=== PATIENT | male | born 1955 | race Caucasian/White ===

== ENCOUNTER 2021-02-17 15:49 | Observation (INO) | payer MEDICARE, SELFPAY ==
[2021-02-17] VITALS (14 sets, daily range): BP systolic 121–167; BP diastolic 67–95; PULSE 68–82; RESP 16–22; TEMP 36.4–37.9; O2SAT 92–97; BMI 30.7
--- NOTE | 2021-02-17 15:59 | PM.HP ---
Providers/Chief Complaint Admitting Physician: Junior Bourne MD Chief Complaint: APPENDIX History of Present Illness Mr. Harley Leone is a 65 year old male otherwise healthy presented to the emergency department of [facility] with worsening right-sided abdominal pain that started last Thursday while he was walking his 200 pounds dog, the pain has been waxing and waning over the weekend but today got worse so he decided to go to the ER to seek medical attention. She reports no history of nausea vomiting fevers or chills or any other constitutional symptoms. Never had this pain before and never had a colonoscopy when I asked him. Further work-up in the ER showed WBC count of 11.1, hemoglobin 15.5, platelets of 146, creatinine 0.[address] scan of the abdomen and pelvis was performed with IV contrast that showed findings consistent with appendicitis in addition to right inguinal hernia containing a short segment of non distended or thickened small bowel and descending and sigmoid colon diverticulosis without evidence of diverticulitis. I received a phone call from the ER [facility] and I accepted the patient as direct admission on my service for laparoscopic appendectomy possible open. Patient was transferred to [facility] via ambulance. Maintained to be having stable vital signs. Patient received dose of Zosyn at the emergency department prior to arrival to the hospital at [facility] Review of Systems General: Reports: 10 or more systems reviewed and unremarkable except in HPI and below Medications/Allergies Allergies Allergy/AdvReac Type Severity Reaction Status Date / Time No Known Allergies Allergy Verified 02/17/21 16:02 PFSH Acute PFSH: Medical History Right groin hernia Physical Exam Const: COMMON NORMALS: no acute distress and patient oriented x3 GENERAL APPEARANCE: cooperative ORIENTATION/CONSCIOUSNESS: Yes awake, Yes oriented to person, Yes oriented to place and Yes oriented to time HENMT: COMMON NORMALS: normocephalic HEAD & SCALP: normocephalic Eye: COMMON NORMALS: Equal, round and reactive pupils present and no scleral icterus PUPIL: Yes Equal, round and reactive pupils present Lymph: LYMPHATIC: no lymphadenopathy noted Chest: COMMONS NORMALS: normal inspection of the chest Resp: COMMON NORMALS: normal respiratory effort and clear to auscultation bilaterally AUSCULTATION: clear to auscultation bilaterally Cardio: COMMON NORMALS: S1 normal heart sound present and S2 normal heart sound present; negative for No murmurs present (Cardio) HEART SOUNDS: S1 normal heart sound present and S2 normal heart sound present GI: COMMON NORMALS: Soft to palpation; negative for No hepatosplenomegaly present INSPECTION: Yes normal to inspection PALPATION: Yes Soft to palpation, No Firmness to palpation present (GI), Yes Tenderness to palpation present (GI) Details: RLQ (Localized tenderness and guarding at McBurney's point consistent with acute appendicitis), No Guarding due to palpation present (GI), No Rigid due to palpation, No No hepatosplenomegaly present and Yes Hernia present other (Reducible right groin hernia) Neuro: COMMON NORMALS: patient oriented x3 SENSORIUM/ORIENTATION: Yes oriented to person, Yes oriented to place and Yes oriented to time Psych: COMMON NORMALS: mental status grossly normal Skin: COMMON NORMALS: no rashes or lesions noted GENERAL SKIN EXAM: no rashes or lesions noted A&P Assessment and plan (1) Acute appendicitis: After thorough history physical examination and reviewing the chart, I counseled the patient for laparoscopic appendectomy possible open. Indications, risks, benefits and alternatives were all discussed with the patient and did agree to proceed. Rationale was carefully and clearly discussed with the patient.Appropriate informed consent have been reviewed and signed Status: Acute Attestations Medical Necessity Statement*: Observation status for perioperative care Time Spent in Patient Care: (>than 50% of time spent in counselling and/or direct pt care on unit). Coding Level of Care Code Acute Court Transcriber for g Fwd Exam Comprehensive Diagnoses Acute appendicitis K35.80
--- NOTE | 2021-02-17 16:03 | ANES.PREANE2 ---
Pre-Anesthetic Assessment Pre-Anesthetic Assessment: Preop Diagnosis: acute appendicitis Proposed Procedure: Operation Date: 02/17/21 16:50 Proposed Procedures p Laparoscopic Appendectomy(Not Applicable) - Junior Bourne MD Was Beta Imelda taken within 24 hours: N/A Was Clonidine taken within 24 hours: N/A Social: Social History: No alcohol and No tobacco Exam: Pre-Anes Outpt Exam: alert, oriented x 3, clear to auscultation bilaterally and regular rate & rhythm Airway: Submandibular: WNL Cervical ROM: WNL MP: 2 Dentition: Chipped Pulmonary: Pulmonary: None reported CV/HEM: CV/HEM: None reported : : None reported Hepatic: Hepatic: None reported GI: GI: None reported Metabolic: Metabolic: None reported Musc/skel: Musc/skel: None reported Neuropsych: Neuropsych: None reported Anesthetic Plan: ASA status: 1E Anesthesia: General PFSH Anesthesia PFSH: Medical History Right groin hernia Data Anesthesia Cardiac Studies: No Data to Display
[2021-02-17] MEDS: sodium chloride 0.9% 1,000 ML 30 ML IV (16:05)
[2021-02-17] MEDS: acetaminophen 1,000 MG/100 ML PIGGYBACK 400 MG IV (16:12)
--- NOTE | 2021-02-17 16:46 | SUR.PHASEI ---
1552 PT RECIEVED FROM AMBULANCE CREW TO OPS 10 PT AWAKE ALERT WALKED TO BED PT HAS AND 20 GAUGE IV TO RT AC PATENT . PT PLACED IN GOWN PER SELF DR KRUEGER AND DR GREEN AT BEDSIDE AND HEART AND BREATH SOUNDS ASSESSED.
[2021-02-17] MEDS: lidocaine 2% INJ 20 mL INJECTION (17:35)
--- NOTE | 2021-02-17 17:38 | SUR.PHASEI ---
1730 UPDATED THAT SURGERY IS GOING WELL AND WILL FINISH IN APPROX 45 MINUTES, NO QUESTIONS VOICED.
--- NOTE | 2021-02-17 17:54 | PM.OP ---
Operative Report Date of procedure: February 17, 2021 Pre-op Diagnosis: Acute appendicitis Post-op diagnosis: other Post-op Diagnosis: Perforated appendicitis Pelvic peritonitis Procedure Done: 1-Laparoscopic appendectomy and partial cecectomy 5-Hpwdx-[id number] drain placement Specimens removed/disposition: Appendix and partial cecectomy Surgeon: Junior Bourne Deputy Harbormaster: Surgical nahum Perkins Circulating nurse Kasie Anesthesia: General (research food technologist Jennifer) Estimated blood loss (mL): 15 IV fluids (mL): 2,000 Condition: stable Disposition: observation Brief History: Acute appendicitis Procedure: Patient after being identified in the holding area and asked to void urine, and informed consent per chart ,patient was then taken back to the OR placed in supine position got intubated by anesthesia left arm was tucked tucked ,Timeout was done verifying the patient's name/date of /planned procedure and destination after the procedure, all were in agreement., preoperative antibiotics administered per protocol. prep and drape of the abdomen was done under the usual sterile technique. Started by longitudinal skin incision supraumbilical using a [place] trocar technique safe entry to the abdominal cavity was achieved verified by using 10 mm zero degree laparoscopy, switched to a 30? scope under direct visualization a suprapubic 5 mm trocar was inserted followed by another 5 mm trocar inserted in the left lower quadrant. I was able to position the patient in an T Villareal and left side down, noticed pelvic peritonitis., Using LigaSure 5 mm device under direct visualization for dissection and control of the mesoappendix,dissection of the prececal acutely inflamed appendix with perforation there was some adhesions towards the lateral pelvic wall that was taken down by sharp and blunt dissection, as the cecum was partially showing intense inflammatory process. Extensive inflammation involving part of the cecum and perforation was noticed towards the distal two third of the appendix with lots of intense inflammatory process towards the right lateral pelvic wall. Inter small bowel loops pus and fibrinous exudates was evident that was cleaned and irrigated. Attention was deviated to the healthy base of the appendix where I had to switch the camera to 5 mm 30? scope got introduced through the left lower quadrant and through the [place] trocar under direct visualization a GI stapler 45 mm blue load was applied at the healthy part of the cecum/base of the appendix,the appendix with partial cecectomy was then retrieved in an Endo Catch bag, final survey was done of the abdomen and pelvis , copious and thorough irrigation with warm saline, and suction was obtained, were purulent fluid like in the pelvis due to reaction from the inflamed perforated appendix. Multiple 5 mm clips were applied onto the staple line as well as the appendectomy staple line, one of the appendices epiploicae of the rectosigmoid did have some oozing and a clip application was applied as well. Final look laparoscopy was done showing no other abnormalities or injuries, Copious and thorough irrigation was used using 5 L of warm saline was then established, and I elected to place a 15 Bulgarian round Bernardino drain towards the pelvis under direct visualization.That was later stitched to the abdominal wall using 2-0 nylon. All trocars were taken out under direct visualization after the supraumblical trocar site was closed by #1 PDS sutures under direct vision using fascial closure device ,followed by skin closure using skin stacey of all trocar site incisions. infiltration of local lidocaine 2% was done to all incision sites.Dry dressing was applied. Count was completed at the end of the procedure for [place] , sponges and instruments Patient tolerated the procedure well and was transferred to the recovery area after extubation. I was present for the whole entire procedure
--- NOTE | 2021-02-17 18:14 | ANE.PACU2 ---
Inpatient post-anesthesia follow up: Airway intact: Yes Vital signs: Temperature 100.3 F Pulse Rate 82 Respiratory Rate 18 Blood Pressure 167/95 Pulse Oximetry 97 Oxygen Delivery Me thod Room Air Oxygen Flow Rate Fraction of Inspir ed Oxygen Hydration adequate: Yes Nausea and vomiting: No Pain level: 2 Mental status: Baseline
--- NOTE | 2021-02-17 18:34 | SUR.PHASEI ---
1804 PT TO OPS BAY 10 SLEEPING WITH ORAL AIRWAY IN PLACE GOOD RESP EFFORT ABD SOFT ROUND, BANDAIDS X 2 DRAIN SPONGE TO 3RD SITES WITH MICHAEL DRAIN WITH LARGE AMT OF LT PINK FLUID EMPTIED MULTIPLE TIMES, 1825 PT AWAKES AND COUGHS ORAL AIRWAY OUT PT QUICKLY BACK TO SLEEP DOES NOT VERBALIZED , DOES OPEN EYES TO NAME. 183 PT ON 3LNC SATS MAINTAINED AT 92 % RESP EVEN AND UNLABORED, VSS.
--- NOTE | 2021-02-17 18:40 | SUR.PHASEI ---
PT MORE ALERT NOW AND TALKATIVE, ORIENTED TO NAME AND PLACE AND RECENT SURGERY, PT DENIES PAIN AND NAUSEA. REQUESTS ICE CHIPS.
[2021-02-17] MEDS: cetylpyridinium Lozenge 1 EACH MUCOUS MEM (21:38)
[2021-02-17] MEDS: lactated ringers 1,000 ML 150 ML IV (21:38)
[2021-02-17] MEDS: piperacillin-tazobactam 3.375 GM in sodium chloride 0.9% (plus) 50 ML IV (21:38)
[2021-02-17] MEDS: famotidine 20 mg/2 mL INJ IVP (21:39)
[2021-02-18] VITALS (11 sets, daily range): BP systolic 135–159; BP diastolic 67–84; PULSE 73–81; RESP 16–20; TEMP 36.8–37.3; O2SAT 90–96
[2021-02-18] MEDS: acetaminophen 325 mg Tablet 650 MG PO (01:24)
[2021-02-18] MEDS: lactated ringers 1,000 ML 150 ML IV ×3 (03:30→19:51)
[2021-02-18] MEDS: piperacillin-tazobactam 3.375 GM in sodium chloride 0.9% (plus) 50 ML IV ×3 (05:11→20:50)
[2021-02-18] MEDS: morphine 4 mg/mL SDV 1 mL 2 MG IVP (05:17)
--- NOTE | 2021-02-18 06:10 | PC.NURSE ---
Shift Report: No acute events over night. Vitals stable. Patient complained of headache not relived with tylenol. Morphine did help.
[2021-02-18 06:42] LABS: Basophils % 0.2 %; Hematocrit 41.2 % (42.0-52.0); Hemoglobin 13.7 g/dL (11.7-16.6); Lymphocytes # 0.7 10^3/uL (0.8-4.8); Lymphocytes % 6.6 %; Mean Corpuscular HGB Conc 33.3 g/dL (30.0-36.0); Mean Corpuscular Hemoglobin 28.8 pg (28.0-34.0); Mean Corpuscular Volume 86.6 fl (80-94); Mean Platelet Volume 10.1 fL (7.4-10.4); Monocytes # 0.5 10^3/uL (0.2-0.9); Monocytes % 4.1 %; Neutrophils # 9.97 10^3/uL (1.8-7.7); Neutrophils % 88.7 %; Nucleated Red Blood Cells % 0 %; Platelet Count 126 10^3/cmm (130-400); Red Blood Count 4.76 10^6/uL (4.1-5.3); Red Cell Distribution Width 11.7 % (12.1-15.1); White Blood Count 11.2 10^3/uL (4.0-10.0)
--- NOTE | 2021-02-18 07:02 | P.PN_ITS ---
Subjective Subjective: Interval history: Patient overall feels better yet sore. Good urine output. My throat hurts Medications: Reviewed: Yes Vitals/I&O/Wt Last Vital Signs Temp 99.2 F 02/18/21 03:09 Pulse 80 02/18/21 03:09 Resp 16 02/18/21 05:17 BP 145/83 02/18/21 03:09 Pulse Ox 94 02/18/21 05:17 02/17/21 02/18/21 02/18/21 22:59 06:59 14:59 Intake Total 2150 / 2150 930 / 3080 Output Total 515 / 515 550 / 1065 Balance 1635 / 1635 380 / 2015 Weight last 48 hrs Weight 227 lb Physical Exam Narrative: EXAM NARRATIVE: Patient is conscious alert oriented X3 BMI 31 Head and neck examination PERRLA no masses no cervical lymphadenopathy no jaundice Cardiac examination audible S1-S2 no murmurs no gallops no arrhythmias Chest is clear bilateral,abscence of Rhonchi or wheezes,no surgical emphysema Abdomen tender at the incision site nondistended soft no organomegaly guarding or rigidity/no signs of peritonitis, lower abdominal drain in place with serosanguineous output Extremities no cyanosis no clubbing no edema Data : 02/18/21 06:10 02/18/21 06:10 A&P Assessment and plan (1) Status post laparoscopic appendectomy: Assessment 65 years old status post laparoscopic appendectomy 02/17/2021 with intra- abdominal drain placement Plan Start the patient slowly on clear liquid Hydrocodone to help with better pain control Encourage ambulation Lovenox 40 mg subcutaneous daily Cholorseptic spray for sore throat Continue IV antimicrobial therapy Drain teaching and education Assurance and education All questions have been answered and all concerns have been addressed to patient's satisfaction. Status: Acute Attestations Medical Necessity Statement*: Observation status for perioperative care including parenteral antimicrobial Time Spent in Patient Care: (>than 50% of time spent in counselling and/or direct pt care on unit) . Coding Level of Care Code Acute Hematology Nurse Educator for Chg Fwd Diagnoses Status post laparoscopic appendectomy Z90.49
[2021-02-18 07:06] LABS: Blood Urea Nitrogen 10 mg/dL (8-23); Calcium 7.9 mg/dL (8.5-10.5); Carbon Dioxide 23 mmol/L (22-29); Chloride 106 mmol/L (98-107); Creatinine Clr Calc Pharmacy 111.2059; Glomerular Filtration Rate 96.4 mL/min (90-130); Glucose 135 mg/dL (65-115); Osmolality Calculated 289 mOsm/kg (285-295); Sodium 139 mmol/L (136-145)
[2021-02-18] MEDS: enoxaparin 40 mg/0.4 mL Syringe SUBCUT (08:59)
--- NOTE | 2021-02-18 09:08 | PC.CHAP ---
Pastoral Care Encounter/Spiritual Assessment Type of Contact [] Declined rotary derrick operator visit [] Patient/Family/Request visit [] Outpatient visit [] Follow-up visit [] Physician referral [] Code/Alert [x] Routine visit [] Staff referral [] Actively dying [] Patient sleeping [] Family support [] [] Out of room [] Palliative care [] [] Receiving care in room [] Pre-surgical visit [] Trauma [] Long length of stay [] ICU visit [] Other: Relational/Emotional Strength [x] Patient feels connected with others/family/visitors/staff [] Distress [] Loneliness/isolation [] Abandonment Spirituality of Patient [x] Person of Carli [x] Attends Restoration of their Carli [x] Believes in Prayer [x] Reads Bible or Taoism materials [] There are Spiritual issues to be addressed Boiling Tub Operator Interventions [x] Prayer [x] Active listening [x] Non-anxious presence [] Spiritual/emotional support [] Crisis/trauma care [] Spiritual counseling [] Bereavement support [] Provided bereavement packet [] Provided Bible/devotional materials [] Provided toy/stuffed animal, coloring book to patient or family member [] Provided Communion [] Anointing/[place] [] Salvation [x] Completed spiritual assessment [] Other: Impact on Illness or Injury [] Angry [] Fearful [] Anxious [] Often cries [] Exhaustion [] Unable to work [] Unable to attend buddhism [] Unable to walk/stand [] Unable to read [] Unable to drive [] Unable to eat/drink [] Unable to sleep [] Unable to be with family [] Patient intubated [] Other: Summary patient has lots of pain Time spent with patient 10 min
[2021-02-18] MEDS: famotidine 20 mg/2 mL INJ IVP ×2 (10:21→20:50)
[2021-02-18] MEDS: HYDROcodone-acetaminophen 5-325 mg Tablet 1 TAB PO (14:01)
--- NOTE | 2021-02-18 14:18 | PC.NUTR ---
Nutrition assessment triggered for MST score of 2, however appears to be in error. Will assess at 5D LOS or as needed.
[2021-02-19] MEDS: lactated ringers 1,000 ML 150 ML IV (01:59)
[2021-02-19 03:27] LABS: Basophils % 0.1 %; Hematocrit 37.3 % (42.0-52.0); Hemoglobin 12.5 g/dL (11.7-16.6); Lymphocytes # 0.7 10^3/uL (0.8-4.8); Lymphocytes % 7.2 %; Mean Corpuscular HGB Conc 33.5 g/dL (30.0-36.0); Mean Corpuscular Hemoglobin 29.3 pg (28.0-34.0); Mean Corpuscular Volume 87.6 fl (80-94); Mean Platelet Volume 10.9 fL (7.4-10.4); Monocytes # 0.5 10^3/uL (0.2-0.9); Monocytes % 5.3 %; Neutrophils # 8.22 10^3/uL (1.8-7.7); Neutrophils % 86.9 %; Nucleated Red Blood Cells % 0 %; Platelet Count 140 10^3/cmm (130-400); Red Blood Count 4.26 10^6/uL (4.1-5.3); Red Cell Distribution Width 11.7 % (12.1-15.1); White Blood Count 9.5 10^3/uL (4.0-10.0)
[2021-02-19 03:45] LABS: Blood Urea Nitrogen 10 mg/dL (8-23); Carbon Dioxide 26 mmol/L (22-29); Chloride 103 mmol/L (98-107); Creatinine Clr Calc Pharmacy 111.2059; Glomerular Filtration Rate 134.4 mL/min (90-130); Glucose 133 mg/dL (65-115); Osmolality Calculated 283 mOsm/kg (285-295); Sodium 136 mmol/L (136-145)
[2021-02-19 04:00] VITALS: BP 162/86; PULSE 70; RESP 18; TEMP 37.2; O2SAT 93
[2021-02-19] MEDS: piperacillin-tazobactam 3.375 GM in sodium chloride 0.9% (plus) 50 ML IV ×2 (05:43→13:18)
[2021-02-19 08:00] VITALS: BP 154/89; PULSE 65; RESP 18; TEMP 36.9; O2SAT 94
[2021-02-19] MEDS: calcium carb-vit d 500mg-200unit 1 Tablet 1 EACH PO (09:11)
[2021-02-19] MEDS: famotidine 20 mg/2 mL INJ IVP (09:11)
[2021-02-19] MEDS: lactated ringers 1,000 ML 100 ML IV (10:19)
--- NOTE | 2021-02-19 11:25 | PC.CHAP ---
Pastoral Care Encounter/Spiritual Assessment Type of Contact [] Declined motor tester visit [] Patient/Family/Request visit [] Outpatient visit [] Follow-up visit [] Physician referral [] Code/Alert [x] Routine visit [] Staff referral [] Actively dying [] Patient sleeping [] Family support [] [] Out of room [] Palliative care [] [] Receiving care in room [] Pre-surgical visit [] Trauma [] Long length of stay [] ICU visit [] Other: Relational/Emotional Strength [x] Patient feels connected with others/family/visitors/staff [] Distress [] Loneliness/isolation [] Abandonment Spirituality of Patient [x] Person of Carli [x] Attends Quaker of their Carli [x] Believes in Prayer [] Reads Bible or Church materials [] There are Spiritual issues to be addressed Egg Caser Interventions [] Prayer [] Active listening [] Non-anxious presence [] Spiritual/emotional support [] Crisis/trauma care [] Spiritual counseling [] Bereavement support [] Provided bereavement packet [] Provided Bible/devotional materials [] Provided toy/stuffed animal, coloring book to patient or family member [] Provided Communion [] Anointing/[place] [] Salvation [] Completed spiritual assessment [] Other: Impact on Illness or Injury [] Angry [] Fearful [] Anxious [] Often cries [] Exhaustion [] Unable to work [] Unable to attend yazidism [] Unable to walk/stand [] Unable to read [] Unable to drive [] Unable to eat/drink [] Unable to sleep [] Unable to be with family [] Patient intubated [] Other: Summary I offered to pray, but he declined saying his bahai family and many others are praying for him. Time spent with patient 2 minutes
[2021-02-19 11:31] VITALS: BP 184/94; PULSE 69; RESP 19; TEMP 36.8; O2SAT 98
--- NOTE | 2021-02-19 14:43 | PM.SDS ---
Short Stay Summary Providers Date of Admit/Discharge: 02/19/21 Attending Provider: Junior Bourne MD Chief Complaint: APPENDIX HPI History of Present Illness Mr. Harley Leone is a 65 year old male otherwise healthy presented to the emergency department of [facility] [place] with worsening right-sided abdominal pain that started last Thursday while he was walking his 200 pounds dog, the pain has been waxing and waning over the weekend but today got worse so he decided to go to the ER to seek medical attention. She reports no history of nausea vomiting fevers or chills or any other constitutional symptoms. Never had this pain before and never had a colonoscopy when I asked him. Further work-up in the ER showed WBC count of 11.1, hemoglobin 15.5, platelets of 146, creatinine 0.8 albumin 4.1. The report of the CT scan of the abdomen and pelvis was performed with IV contrast that showed findings consistent with appendicitis in addition to right inguinal hernia containing a short segment of non distended or thickened small bowel and descending and sigmoid colon diverticulosis without evidence of diverticulitis. I received a phone call from the ER [facility] and I accepted the patient as direct admission on my service for laparoscopic appendectomy possible open. Patient was transferred to [facility] via ambulance. Maintained to be having stable vital signs. Patient received dose of Zosyn at the emergency department prior to arrival to the hospital at [facility]. CT scan images of the abdomen and pelvis were reviewed and with my personal interpretation patient does have an acute appendicitis with fecalith and bilateral inguinal hernias larger on the right side and smaller on the left side. Patient does have a chronic hernia that will not take place for surgical intervention today. Down the road patient will benefit from a colonoscopy and bilateral repair of his inguinal hernias Review of Systems General: Reports: 10 or more systems reviewed and unremarkable except in HPI and below Home Meds/Allergies Home Medications and Allergies Home Medications Medication Instructions Recorded Confirmed Type aspirin 81 mg PO DAILY 02/17/21 02/17/21 History Allergies Allergy/AdvReac Type Severity Reaction Status Date / Time No Known Allergies Allergy Verified 02/17/21 16:02 PFSH Acute PFSH: Medical History Acute appendicitis Perforated appendicitis Right groin hernia Vitals/I&O/Wt Last Vital Signs Temp 98.2 F 02/19/21 11:31 Pulse 69 02/19/21 11:31 Resp 19 H 02/19/21 11:31 BP 184/94 02/19/21 11:31 Pulse Ox 98 02/19/21 11:31 02/18/21 02/19/21 02/19/21 22:59 06:59 14:59 Intake Total 2030 / 3560 970 / 4530 1530 / 1530 Output Total 75 / 975 100 / 1075 100 / 100 Balance 1955 / 2585 870 / 3455 1430 / 1430 Weight last 48 hrs Weight 227 lb Physical Exam Narrative: EXAM NARRATIVE: Patient is conscious alert oriented X3 BMI 31 Head and neck examination PERRLA no masses no cervical lymphadenopathy no jaundice Abdomen tender at the incision site nondistended soft no organomegaly guarding or rigidity/no signs of peritonitis, lower abdominal drain in place with serosanguineous output Extremities no cyanosis no clubbing no edema Hospital Course Hospital Course Patient overall did well after surgery and his pain was under adequate control. Continues to have trending down and his WBC count and other lab work was of insignificance, patient tolerated clear liquid diet and advance to full liquid diet after he has been passing gas. No reported fevers and blood pressure was having tendency to be on the little higher side likely due to related to pain. Responded well to pain medications. Patient was eager to be discharged home as soon as possible and he was very well educated about the importance to establish primary care provider as he does not have anyone and he is less interested to go to any physicians to seek medical care. I did share my concerns with the patient about his blood pressure that needs to be closely monitored also I did educate him about the importance of stool softeners particularly he will be on pain medications after surgery. And I did send the patient out on Augmentin 875 mg twice daily for 10 days he did not show much enthusiasm for the antibiotics course. Patient maintains to have adequate urine output and he met appropriate criteria to be discharged home. Patient ambulated without assistance in the hospital and he was also on pharmacologic DVT prophylaxis. Undergone education with regard to incentive spirometer to prevent pneumonia. Discharge Summary This is a 65 years old gentleman undergone laparoscopic appendectomy for perforated appendicitis with partial cecectomy. Patient overall did well and was discharged home after receiving antimicrobial therapy in the hospital. Pathology did show Appendix and cecum, laparoscopic appendectomy and partial cecectomy: ?Acute severe perforated necrotizing gangrenous appendicitis. ?Benign colonic (cecal) segment with two reactive lymph nodes. ?Overall, no malignancy identified. Patient was educated about the importance to establish primary care provider service and follow-up with me at the office in 7 to 10 days to remove the drain and skin stacey also patient was educated about the importance to have a screening colonoscopy down the road. Appropriate education was given to the patient by the nursing staff with regard to drain care and teaching. Patient was also educated as well as his spouse about the potential development of intra-abdominal abscess formation due to the perforated nature of his appendicitis. That may require further procedural and surgical intervention and image guided drainage. SSS Data Data Completed and Pending: Completed Studies During Hospitalization Category Date Time Status Pathology: Surgic al [PTH] Routine Pth 02/17/21 17:52 Completed Pending at discharge Category Date Time Status ES surgery / GI i mages Routine Exams 02/17/21 16:09 Taken Basic Metabolic P eugenia AM LABS Lab 02/20/21 04:00 Ordered Complete Blood Co unt w/Auto AM LABS Lab 02/20/21 04:00 Ordered Diagnoses at Discharge Discharge Diagnosis (1) Status post laparoscopic appendectomy: Status: Resolved Discharge Plan Discharge Patient Disposition: Home Condition: Stable Prescriptions: New Augmentin 875-125 mg tablet 1 tab PO Q12H Qty: 20 RF: 0 hydrocodone-acetaminophen 5-325 mg tablet 1 tab PO Q6H PRN (Reason: pain) Qty: 28 RF: 0 Continued aspirin 81 mg Tablet 81 mg PO DAILY RF: 0 Discharge Orders: Discharge Order (Routine); Ordered 02/19/21 Ordered By: Junior Bourne Referrals: Junior Bourne MD [Physician] - 02/28/21 8:00 am (Return to surgery office in 10 days) Discharge Diet: Advance as tolerated Discharge Activity: Limit activity as instructed Patient Instructions: Hydrocodone/Acetaminophen (By mouth), Amoxicillin/Clavulanate Potassium (By mouth), Laparoscopic Appendectomy (DC), Opioid Safety Activity Restrictions/Additional Instructions: 1. Patient can shower after 48 hours from surgery 2. Remove secondary dressing can take down after 48 hours. 3. Up and walking as tolerated 4. Do not lift more than 5 pounds first 2 weeks after surgery and not more than 25 pounds 6 to 8 weeks after surgery. 5. Do not operate heavy machinery or drive while using pain medications. 6.Contact the office or return to the ER for worsening nausea vomiting fevers or chills, or noticing any redness around incision sites or discharge. 7. Drain care and teaching Attestations Medical Necessity Statement*: Observation for perioperative care for parenteral antimicrobial therapy and pain control. Time Spent in Patient Care*: greater than 30 min Specific Discharge Activities: Specific discharge activities: educating patient and educating and/or supporting family/caregiver Status at Discharge: Cognitive status at discharge: cognitively intact, Behavioral status at discharge: cooperative, Functional status at discharge: independent ambulation Overall status at discharge: patient is progressing back to baseline Quality Metrics Clinical Quality Measures: During this hospital stay, did patient experience: None Coding Level of Care Code Acute Technical Producer for Rui Fwelma Diagnoses Status post laparoscopic appendectomy Z90.49
[2021-02-19 15:09] VITALS: BP 165/91; PULSE 67; RESP 17; TEMP 36.7; O2SAT 96
--- NOTE | 2021-02-19 16:03 | PC.NURSE ---
Discharge Note Patient discharged to home via personal vehicle accompanied by his . Discharge instructions reviewed with patient and/or field support representative. Mobile pharmacy medications and/or prescriptions brought to patient by [facility] ([facility] Belongings/home medications returned.
[2021-02-19 16:04] VITALS: BP 165/91; PULSE 67; RESP 17; TEMP 36.7; O2SAT 96
--- NOTE | 2021-02-20 13:41 | PC.SOCIAL ---
discharge follow up call made to patient. patient reports he is feeling good. New medications delivered to patient prior to discharge. patient is taking as prescribed. patient is aware of follow up appointment with Dr. Bourne.
== END 2021-02-19 16:00 | disposition home or self-care (01) ==
PROVIDERS: Admitting Provider Surgery; Visit Provider Surgery
PROC: 0DTJ4ZZ Resection of Appendix, Percutaneous Endoscopic Approach (ICD-10-PCS; CPT 44970; principal; 2021-02-17 16:30)
DX: K35.891 Other acute appendicitis without perforation, with gangrene (principal)
CPT/HCPCS: 44238; 44970; 36415; 80048; 85025; 88304; 96372; G0378; G0379; J1100; J1650; J2270; J2405; J2543; J2704; J2710; J3010; J3490; J7030

== ENCOUNTER → 2022-11-20 11:09 | Outpatient (BNVA) | payer MEDICARE, SELFPAY | PROVIDERS: PCP Family Medicine; Visit Provider Family Medicine | DX: E66.9 Obesity, unspecified (principal); Z68.30 Body mass index [BMI] 30.0-30.9, adult; K40.20 Bilateral inguinal hernia, without obstruction or gangrene, not specified as recurrent; Z13.220 Encounter for screening for lipoid disorders; Z13.6 Encounter for screening for cardiovascular disorders | CPT/HCPCS: 80053; 80061; 81000; 84439; 84443; 85025 ==